=== PATIENT | female | born 1980 | race Caucasian/White ===

== ENCOUNTER 2023-06-21 05:37 | Emergency (ER) | payer OTHER ==
[~2023-06-21] VITALS: Ht 170.2 cm; Wt 65.8 kg
[2023-06-21 05:44] VITALS: BP 134/91; PULSE 95; RESP 17; TEMP 98.1; O2SAT 98
== END 2023-06-21 06:19 ==
LOC: MED 05:37
DX: S40.012A Contusion of left shoulder, initial encounter (principal); V49.88XA Car occupant (driver) (passenger) injured in other specified transport accidents, initial encounter; Y93.89 Activity, other specified; Y92.89 Other specified places as the place of occurrence of the external cause; Y99.8 Other external cause status
CPT/HCPCS: 71045; 99283